=== PATIENT | female | born 1960 | race Caucasian/White ===

== ENCOUNTER 2018-02-07 10:46 | Day surgery (SDC) | payer OTHER ==
[~2018-02-07] VITALS: Ht 175.3 cm; Wt 79.6 kg
[2018-02-07 11:07] VITALS: BP 127/93; PULSE 53; TEMP 97.4
[2018-02-07] MEDS ORDERED: KLONOPIN WAFE0.25 MG PO (11:43)
[2018-02-07] MEDS ORDERED: PREMARIN 0.9MG0.9 MG PO (11:44)
[2018-02-07] MEDS ORDERED: PAXIL40 MG PO (11:44)
[2018-02-07] MEDS ORDERED: KLONOPIN 0.5MG0.5 MG PO (11:45)
[2018-02-07 12:40] VITALS: BP 137/75; PULSE 57
[2018-02-07 12:55] VITALS: BP 116/69; PULSE 54
[2018-02-07 13:10] VITALS: BP 126/70; PULSE 70
[2018-02-07 13:40] VITALS: BP 112/69; PULSE 71
== END 2018-02-07 13:35 | disposition home or self-care (01) ==
LOC: SDCO 10:46
DX: K59.09 Other constipation (principal); K63.89 Other specified diseases of intestine; F41.9 Anxiety disorder, unspecified; F32.9 Major depressive disorder, single episode, unspecified; Z90.49 Acquired absence of other specified parts of digestive tract; Z90.710 Acquired absence of both cervix and uterus
CPT/HCPCS: J2250; J3010